=== PATIENT | female | born 1935 | race Two or more races ===

== ENCOUNTER 2020-06-06 18:24 | Emergency (ER) | payer OTHER ==
[~2020-06-06] VITALS: Ht 149.9 cm; Wt 52.2 kg
[2020-06-06 18:40] VITALS: BP 156/70
--- NOTE | 2020-06-06 18:42 | NUR ---
ED Nurse Note:pt. was BIBA from home withn c/o abdominal pain nausea and distention for 1 month, pt. is A/Ox4 ambulatory with assist, placed on child monitor
--- NOTE | 2020-06-06 18:42 | Emergency Room Report ---
History of Present Illness General Chief Complaint: Abdominal Pain Source: EMS Present Illness HPI Patient is an 85-year-old female presents after increased generalized abdominal pain. Associated increased nausea and diarrheal stools. Patient had been brought in by EMS after worsening pain. Reports having nausea without emesis. Prior history of cholecystectomy as well as . Reports increased abdominal distention today. Denies any fever. Denies any cough or shortness of breath. Allergies: Coded Allergies: No Known Allergies (Unverified , 06/06/20) COVID-19 Screening Contact w/high risk pt: No Experienced COVID-19 symptoms?: No COVID-19 Testing performed PROFESSIONAL MODEL: No Patient History Past Medical History: see triage record Last Menstrual Period: na Reviewed Nursing Documentation: PMH: Agreed; PSxH: Agreed Nursing Documentation-PMH Past Medical History: No History, Except For Hx Hypertension: Yes Hx Diabetes: Yes Physical Exam Vital Signs Date Time Temp Pulse Resp B/P (MAP) Pulse Ox O2 Delivery O2 Flow Rate FiO2 06/06/20 18:18 98.8 96 16 156/70 (98) 98 Room Air Sp02 EP Interpretation: reviewed, normal General Appearance: normal inspection, well appearing, no apparent distress, alert, GCS 15, non-toxic Head: atraumatic ENT: normal ENT inspection, hearing grossly normal, normal voice Neck: normal inspection, full range of motion, supple, no bony tend Respiratory: normal inspection, lungs clear, normal breath sounds, no respiratory distress, no retraction, no wheezing Cardiovascular #1: regular rate, rhythm, no edema Gastrointestinal: soft, no hernia, distended Genitourinary: no CVA tenderness Musculoskeletal: normal inspection, back normal, normal range of motion Neurologic: alert, motor strength/tone normal, classroom paraprofessional III-XII nml as tested, oriented x3, responsive, speech normal, normal inspection Psychiatric: normal inspection, judgement/insight normal, mood/affect normal Medical Decision Making Diagnostic Impression: Primary Impression: Pelvic mass Additional Impressions: Colonic obstruction Coagulopathy Staghorn calculus ER Course Patient presented for abdominal pain. Differential diagnoses included ischemic bowel, appendicitis, perforated viscus, abdominal aortic aneurysm, inferior myocardial infarction, viral gastroenteritis among others.Because patient's complexity imaging studies, and laboratory testing ordered. Laboratory testing showed elevated BUN/creatinine as well as coagulopathy.. Electrolytes were unremarkable. Lipase was normal White blood count was normal CT of the abdomen pelvis showed: Poorly defined mass in the lower aspect of the true pelvis involving the distal rectosigmoid colon surrounding pericolonic region especially on the right side and uterus and bladder base secondary to colonic obstruction with some obstructive changes related to the uterus with enlarged endometrial cavity, severe right hydronephrosis also from obstruction secondary to mass lesion some colonic thickening in the sigmoid area. Patient was given vitamin K due to coagulopathy. She was given IV antibiotics. Patient was discussed with Dr. C[place]ton for [facility] who agreed to accept the patient for transfer Labs Test 06/06/20 18:50 06/06/20 19:51 White Blood Count 9.7 K/UL (4.8-10.8) Red Blood Count 4.67 M/UL (4.20-5.40) Hemoglobin 13.6 G/DL (12.0-16.0) Hematocrit 39.9 % (37.0-47.0) Mean Corpuscular Volume 86 FL (80-99) Mean Corpuscular Hemoglobin 29.1 PG (27.0-31.0) Mean Corpuscular Hemoglobin Concent 34.1 G/DL (32.0-36.0) Red Cell Distribution Width 11.7 % (11.6-14.8) Platelet Count 179 K/UL (150-450) Mean Platelet Volume 13.1 FL (6.5-10.1) Neutrophils (%) (Auto) 72.5 % (45.0-75.0) Lymphocytes (%) (Auto) 15.7 % (20.0-45.0) Monocytes (%) (Auto) 9.3 % (1.0-10.0) Eosinophils (%) (Auto) 1.6 % (0.0-3.0) Basophils (%) (Auto) 0.9 % (0.0-2.0) Prothrombin Time 58.9 SEC (9.30-11.50) Prothromb Time International Ratio 6.2 (0.9-1.1) Activated Partial Thromboplast Time 110 SEC (23-33) Sodium Level 136 MMOL/L (136-145) Potassium Level 3.7 MMOL/L (3.5-5.1) Chloride Level 98 MMOL/L (98-107) Carbon Dioxide Level 27 MMOL/L (21-32) Anion Gap 11 mmol/L (5-15) Blood Urea Nitrogen 48 mg/dL (7-18) Creatinine 2.0 MG/DL (0.55-1.30) Estimat Glomerular Filtration Rate 23.7 mL/min (>60) Glucose Level 186 MG/DL (74-106) Calcium Level 10.4 MG/DL (8.5-10.1) Total Bilirubin 0.7 MG/DL (0.2-1.0) Aspartate Amino Transf (AST/SGOT) 27 U/L (15-37) Alanine Aminotransferase (ALT/SGPT) 30 U/L (12-78) Alkaline Phosphatase 105 U/L (46-116) Troponin I 0.000 ng/mL (0.000-0.056) Total Protein 8.0 G/DL (6.4-8.2) Albumin 4.2 G/DL (3.4-5.0) Globulin 3.8 g/dL Albumin/Globulin Ratio 1.1 (1.0-2.7) Lipase 134 U/L (73-393) Urine Color Pale yellow Urine Appearance Slightly cloudy Urine pH 6.5 (4.5-8.0) Urine Specific Calvin 1.005 (1.005-1.035) Urine Protein 2+ (NEGATIVE) Urine Glucose (UA) 1+ (NEGATIVE) Urine Ketones Negative (NEGATIVE) Urine Blood 1+ (NEGATIVE) Urine Nitrite Negative (NEGATIVE) Urine Bilirubin Negative (NEGATIVE) Urine Urobilinogen Normal MG/DL (0.0-1.0) Urine Leukocyte Esterase 1+ (NEGATIVE) Urine RBC 5-10 /HPF (0 - 2) Urine WBC 2-4 /HPF (0 - 2) Urine Squamous Epithelial Cells Moderate /LPF (NONE/OCC) Urine Bacteria Few /HPF (NONE) EKG Diagnostic Results Rate: normal Rhythm: NSR ST Segments: no acute changes Last Vital Signs Date Time Temp Pulse Resp B/P (MAP) Pulse Ox O2 Delivery O2 Flow Rate FiO2 06/06/20 18:18 98.8 96 16 156/70 (98) 98 Room Air Status: improved Disposition: SHORT-TERM HOSP Condition: Stable Efren Chapman MD Jun 06, 2020 18:42
[2020-06-06] MEDS ORDERED: Mylanta II UD 30ml ORAL ONE (18:45)
[2020-06-06] MEDS ORDERED: Lidocaine 2% Visc 15ml soln ORAL ONE (18:45)
[2020-06-06] MEDS ORDERED: Dicyclomine HCl 10mg/5ml oral soln ORAL ONE (18:45)
[2020-06-06] MEDS ORDERED: Omnipaque-300 100ml vial INJ PRN (18:45)
--- NOTE | 2020-06-06 19:10 | NUR ---
ED Nurse Note:blood was sent to labs and IV meds with PO was given to pt. , pt. had bowel movement
[2020-06-06 19:17] LABS: BASOPHILS % (AUTO) 0.9 % (0.0-2.0); EOSINOPHILS % (AUTO) 1.6 % (0.0-3.0); HEMATOCRIT 39.9 % (37.0-47.0); HEMOGLOBIN 13.6 G/DL (12.0-16.0); LYMPHOCYTES % (AUTO) 15.7 % (20.0-45.0); MEAN CORPUSCULAR VOLUME 86 FL (80-99); MONOCYTES % (AUTO) 9.3 % (1.0-10.0); NEUTROPHILS % (AUTO) 72.5 % (45.0-75.0); PLATELET COUNT 179 K/UL (150-450); RED BLOOD COUNT 4.67 M/UL (4.20-5.40); RED CELL DISTRIBUTION WIDTH 11.7 % (11.6-14.8); WHITE BLOOD COUNT 9.7 K/UL (4.8-10.8)
[2020-06-06 19:18] LABS: ANION GAP 11 mmol/L (5-15); BLOOD UREA NITROGEN 48 mg/dL (7-18); CALCIUM 10.4 MG/DL (8.5-10.1); CARBON DIOXIDE 27 MMOL/L (21-32); CHLORIDE 98 MMOL/L (98-107); POTASSIUM 3.7 MMOL/L (3.5-5.1); SODIUM 136 MMOL/L (136-145)
--- NOTE | 2020-06-06 19:20 | NUR ---
ED Nurse Note: Patient unable to provide urine sample at this time.
[2020-06-06 19:23] LABS: ALANINE AMINOTRANSFERASE 30 U/L (12-78); ALBUMIN 4.2 G/DL (3.4-5.0); ALBUMIN/GLOBULIN RATIO 1.1 (1.0-2.7); ALKALINE PHOSPHATASE 105 U/L (46-116); ASPARTATE AMINO TRANSFERASE 27 U/L (15-37); BILIRUBIN,TOTAL 0.7 MG/DL (0.2-1.0)
[2020-06-06 19:39] LABS: INR 6.2 (0.9-1.1)
[2020-06-06] MEDS ORDERED: Phytonadione 10 mg/mL 1ml amp SUBQ ONE (19:45)
--- NOTE | 2020-06-06 19:56 | NUR ---
ED Nurse Note: Patient taken to CT in stable condition
[2020-06-06 20:03] LABS: APPEARANCE,URINE SLIGHTLY CLOUDY; BILIRUBIN, URINE NEGATIVE (NEGATIVE); COLOR,URINE PALE YELLOW; GLUCOSE, URINE (UA) 1+ (NEGATIVE); KETONES,URINE NEGATIVE (NEGATIVE); LEUKOCYTE ESTERASE ,URINE 1+ (NEGATIVE); NITRITE,URINE NEGATIVE (NEGATIVE); PH,URINE 6.5 (4.5-8.0); PROTEIN,URINE 2+ (NEGATIVE); UROBILINOGEN,URINE NORMAL MG/DL (0.0-1.0)
--- NOTE | 2020-06-06 20:05 | NUR ---
ED Nurse Note: Patient returned from CT in stable condition
--- NOTE | 2020-06-06 20:09 | NUR ---
ED Nurse Note: Belongings list completed.
[2020-06-06] MEDS ORDERED: Piperacillin/Tazobactam 3.375 GM in NS 110 ML IVPB ONE (20:15)
--- NOTE | 2020-06-06 20:44 | Diagnostic Imaging Report ---
EXAM: CT Abdomen and Pelvis With Intravenous Contrast CLINICAL HISTORY: ABD PAIN TECHNIQUE: Axial computed tomography images of the abdomen and pelvis with intravenous contrast. CTDI is 4.3 mGy and DLP is 204.5 mGy-cm. One or more of the following dose reduction techniques were used: automated exposure control, adjustment of the mA and/or kV according to patient size, use of iterative reconstruction technique. COMPARISON: No relevant prior studies available. FINDINGS: Lung bases: Mild peribronchial thickening and minimal bronchiectasis. Mild scarring in the lingula. Mediastinum: Small hiatal hernia. ABDOMEN: Liver: Nodular liver may be from cirrhosis. Gallbladder and bile ducts: Cholecystectomy and biliary ectasia. Pancreas: Unremarkable. Spleen: Unremarkable. Adrenals: Unremarkable. Kidneys and ureters: Severe right hydroureteronephrosis also from obstruction secondary to the mass lesion. Right severe right hydroureteronephrosis. Staghorn calculus in the left renal pelvis. Atrophic appearing kidneys. Stomach and bowel: Poorly defined mass lesion in the lower aspect of the true pelvis involving the distal rectosigmoid colon, surrounding pericolonic region especially on the right side, the uterus and bladder base. There is secondary colonic obstruction and obstructive changes related to the uterus with enlarged endometrial cavity. Central uterine lesion also present measuring approximately 16 mm. .Some colonic thickening in the sigmoid area, coexisting colitis not excluded. Colonic dilatation. Large amount of stool in the colon. PELVIS: Appendix: Incidental appendicoliths. Bladder: As above Reproductive: As above ABDOMEN and PELVIS: Intraperitoneal space: Poorly defined mass lesion in the lower aspect of the true pelvis involving the distal rectosigmoid colon, surrounding pericolonic region especially on the right side, the uterus and bladder base. There is secondary colonic obstruction with some obstructive changes related to the uterus with enlarged endometrial cavity. Central uterine lesion also present measuring approximately 16 mm. Severe right hydroureteronephrosis also from obstruction secondary to the mass lesion. Right severe right hydroureteronephrosis. Staghorn calculus in the left renal pelvis. Atrophic appearing kidneys. Bones/joints: Compression deformity of T12, probably chronic. Degenerative changes in the spine. Soft tissues: Unremarkable. Vasculature: Unremarkable. No abdominal aortic aneurysm. IMPRESSION: 1. Poorly defined mass lesion in the lower aspect of the true pelvis involving the distal rectosigmoid colon, surrounding pericolonic region especially on the right side, the uterus and bladder base. There is secondary colonic obstruction and some obstructive changes related to the uterus with enlarged endometrial cavity. Central uterine lesion also present measuring approximately 16 mm. Severe right hydroureteronephrosis also from obstruction secondary to the mass lesion. 2. Some colonic thickening in the sigmoid area, coexisting colitis not excluded. <MYCVCSECTION> Communications: 06/06/20 20:50 Verify Receipt Verified receipt with Ari (ER) on 06/06 20:50 (-07:00)
[2020-06-06] MEDS ORDERED: LABETALOL HCL100 MG ORAL (20:50)
[2020-06-06] MEDS ORDERED: AMLODIPINE BESY10 MG ORAL (20:50)
[2020-06-06] MEDS ORDERED: HYDROCHLOROTHIA50 MG ORAL (20:50)
--- NOTE | 2020-06-06 22:21 | NUR ---
ED Nurse Note: Report given to NOEMI Yuen at [facility].
[2020-06-06 23:15] VITALS: BP 148/79
--- NOTE | 2020-06-06 23:15 | NUR ---
ER DISCHARGE NOTE: Patient is cleared to be transferred to [facility] per ERMD, pt is aox4, on room air, with stable vital signs. [facility] transferred patient via gurney provided with patient packet. Patient in stable condition. Patient stable upon transfer.
--- NOTE | 2020-07-26 19:05 | Cardiology Report ---
APPROVED REPORT EKG Measurement Heart [id number] <Conclusion> Normal sinus rhythm Left anterior fascicular block Anterior infarct, age undetermined Abnormal ECG
== END 2020-06-06 23:15 | disposition short-term general hospital (02) ==
LOC: EDBD 18:24 → EMR 18:53 → EDBEDREQ 19:43 → EMR 23:15
DX: R19.00 Intra-abdominal and pelvic swelling, mass and lump, unspecified site (principal); K56.609 Unspecified intestinal obstruction, unspecified as to partial versus complete obstruction; N20.0 Calculus of kidney; Z90.49 Acquired absence of other specified parts of digestive tract; E11.9 Type 2 diabetes mellitus without complications; I10 Essential (primary) hypertension; D68.9 Coagulation defect, unspecified
CPT/HCPCS: 36415; 74176; 80053; 81003; 83690; 84484; 85025; 85610; 85730; 86850; 86900; 86901; 93005; 96365; 96372; 96375; J2405; J2543; J3430; J7040; S0028; U0002; Z7502; 99284